=== PATIENT | male | born 1990 | race Caucasian/White ===

== ENCOUNTER 2018-04-12 14:38 | Emergency (ER) | payer MEDICAID, OTHER ==
[~2018-04-12] VITALS: Ht 175.3 cm; Wt 113.4 kg
[~2018-04-12 14:38] MED LIST: HYDR500T13
[2018-04-12 16:20] VITALS: BP 117/70
[2018-04-12] MEDS ORDERED: LIDOCAINE 1% HCL (LOCAL ANESTH.) INJ 20ML MDV ONE (17:26)
== END 2018-04-12 17:55 | disposition home or self-care (01) ==
LOC: ER 14:38
DX: S91.115A Laceration without foreign body of left lesser toe(s) without damage to nail, initial encounter (principal); J45.909 Unspecified asthma, uncomplicated; Z88.2 Allergy status to sulfonamides; Z79.899 Other long term (current) drug therapy; Z87.442 Personal history of urinary calculi; W45.8XXA Other foreign body or object entering through skin, initial encounter; Y93.89 Activity, other specified; Y99.8 Other external cause status; Y92.89 Other specified places as the place of occurrence of the external cause
CPT/HCPCS: 12002; 73630; 99283; J2001

== ENCOUNTER 2018-04-25 05:03 | Emergency (ER) | payer SELFPAY ==
[~2018-04-25] VITALS: Ht 177.8 cm; Wt 115.7 kg
[2018-04-25 05:14] VITALS: BP 119/86
== END 2018-04-25 07:45 | disposition home or self-care (01) ==
LOC: ER 05:03
DX: S91.115D Laceration without foreign body of left lesser toe(s) without damage to nail, subsequent encounter (principal); J45.909 Unspecified asthma, uncomplicated; Z87.442 Personal history of urinary calculi; X58.XXXD Exposure to other specified factors, subsequent encounter